=== PATIENT | female | born 1990 | race Caucasian/White ===

== ENCOUNTER 2016-05-27 14:49 | Emergency (ER) | payer BC ==
[2016-05-27 15:11] VITALS: BP 127/79
[2016-05-27] MEDS ORDERED: Ibuprofen TAB* 600 MG PO ONE (15:25)
--- NOTE | 2016-05-27 15:51 | RAD ---
INDICATION: Right wrist injury. TECHNIQUE: 3 views of the right wrist were obtained. FINDINGS: The bones are in normal alignment. On one view there is a faint radiolucent line which projects overlying the scaphoid bone. This is likely artifactual although a fracture cannot be excluded. No other fractures are seen. Joint spaces appear maintained. IMPRESSION: THERE IS A RADIOLUCENT LINE WHICH PROJECTS OVER THE SCAPHOID BONE ON ONE VIEW LIKELY ARTIFACTUAL DUE TO OVERLAP OF THE RADIUS ALTHOUGH A FRACTURE CANNOT BE EXCLUDED. RECOMMEND A SCAPHOID VIEW FOR FURTHER EVALUATION.
--- NOTE | 2016-05-27 16:12 | ED ---
Upper Extremity Pain - HPI Summary HPI Summary: Patient presents with right wrist pain that began last night when she fell during a gym workout and caught herself when she fell backwards. She had immediate pain in the wrist but thought it would improve. This AM her pain continued so she came in for evaluation. She previously fractured this wrist years ago that was treated with immobilization. No N/T. She is left handed. She took 400mg of ibuprofen last night. - History of Current Complaint Chief Complaint: EDExtremityUpper Stated Complaint: RIGHT WRIST INJURY Time Seen by Provider: 05/27/16 15:13 Hx Obtained From: Patient, Family/Information Technology Technician Mechanism Of Injury: Fall From A Standing Position Onset/Duration: Started Hours Ago Timing: Constant Severity Initially: Mild Severity Currently: Moderate Pain Location: Wrist Character: Sharp, Aching Aggravating Factor(s): Movement Alleviating Factor(s): Rest Associated Signs & Symptoms: Positive: Negative Related History: Dominant Hand Left - Allergies/Home Medications Allergies/Adverse Reactions: Allergies Allergy/AdvReac Type Severity Reaction Status Date / Time No Known Allergies Allergy Verified 05/27/16 15:08 PMH/Surg Hx/FS Hx/Imm Hx Musculoskeletal History: Reports: Hx of Fracture(s) - right wrist Infectious Disease History: No Infectious Disease History: Denies: Traveled Outside the [place] in Last 30 Days - Family History Known Family History: Positive: None - Social History Occupation: Student Lives: Alone Alcohol Use: Occasionally Substance Use Type: Reports: None Smoking Status (MU): Never Smoked Tobacco Review of Systems Positive: Arthralgia - right wrist, Myalgia. Negative: Decreased ROM, Edema Negative: Bruising All Other Systems Reviewed And Are Negative: Yes Physical Exam Triage Information Reviewed: Yes Vital Signs On Initial Exam: Initial Vitals Temp Pulse Resp BP Pulse Ox 99.6 F 77 18 127/79 100 05/27/16 15:08 05/27/16 15:08 05/27/16 15:08 05/27/16 15:08 05/27/16 15:08 Vital Signs Reviewed: Yes Appearance: Positive: Well-Appearing, Well-Nourished, Pain Distress Skin: Positive: Warm, Skin Color Reflects Adequate Perfusion, Dry, Soft Head/Face: Positive: Normal Head/Face Inspection Eyes: Positive: EOMI, LIZBETH, Conjunctiva Clear ENT: Positive: Hearing grossly normal Respiratory/Lung Sounds: Positive: Breath Sounds Present Cardiovascular: Positive: RRR Musculoskeletal: Positive: Strength/ROM Intact, Pain @ - TTP right DRUJ. Negative: Edema Right Neurological: Positive: Sensory/Motor Intact, Alert, Oriented to Person Place, Time, NV Bundle Intact Distally Psychiatric: Positive: Affect/Mood Appropriate AVPU Assessment: Alert Procedures - Splinting Location: right wrist Pre-Made Type: velcro Splint: wrist Pre-Proc Neuro Vasc Exam: normal Post-Proc Neuro Vasc Exam: normal Diagnostics - Vital Signs Vital Signs Temp Pulse Resp BP Pulse Ox 05/27/16 15:08 99.6 F 77 18 127/79 100 - Laboratory Lab Statement: Any lab studies that have been ordered have been reviewed, and results considered in the medical decision making process. - Radiology No standard instances Xray Interpretation: No Acute Changes Radiology Interpretation Completed By: Radiologist Course/Dx - Diagnoses Differential Diagnosis/HQI/PQRI: Positive: Arthritis, Bursitis, Contusion, Fracture (Closed), Hematoma, Strain, Sprain Provider Diagnoses: Right wrist sprain Discharge - Discharge Plan Condition: Stable Disposition: HOME Patient Education Materials: Wrist Sprain (ED) Referrals: [facility] [Primary Care Provider] - Additional Instructions: Wear your splint to protect you as your pain improves. Come out of the splint several times daily to perform gentle range of motion exercises to avoid stiffness. Elevate your hand above your heart and apply ice for 20 minutes several times daily to decrease swelling and pain. Use ibuprofen 600mg three times daily with meals for the next 3-5 days to decrease swelling and pain as well. Follow-up with [facility] if your symptoms do not begin to improve in the next 7-10 days. Return to the emergency department if your symptoms worsen.
== END 2016-05-27 17:23 | disposition home or self-care (01) ==
LOC: ED 14:49
DX: S63.501A Unspecified sprain of right wrist, initial encounter (principal); W19.XXXA Unspecified fall, initial encounter; Y93.A9 Activity, other involving cardiorespiratory exercise; Y92.39 Other specified sports and athletic area as the place of occurrence of the external cause; Y99.9 Unspecified external cause status
CPT/HCPCS: 99282; A9270-GY